=== PATIENT | male | born 1945 | race Caucasian/White ===

== ENCOUNTER 2017-03-19 09:58 | Outpatient (CLI) | payer MEDICARE, OTHER ==
[2016-07-13 09:16] VITALS: BP 134/73
[2017-03-19 11:04] LABS: eGFR (African) > 60; eGFR (Non-African) > 60
--- NOTE | 2017-03-19 13:56 | Diagnostic Imaging Report ---
NEY LUNA [facility] [address] [facility] [address] [address] Report Submission Date: Mar 19, 2017 12:07:53 PM CDT Patient Study Name: HUSAM NOEL Date: Mar 19, 2017 10:15:08 AM CDT Modality Type: CR Gender: M Description: LOWER EXTREMITY : 45 Institution: [facility] Physician: NEY LUNA Examination: Plain film knee History: Knee discomfort Findings: 3 views of the knee demonstrates normal cortical margins. No fracture. No dislocation. No joint effusion. No soft tissue irregularity. Impression: No osseous abnormality Electronically signed on Mar 19, 2017 12:07:53 PM CDT by: Lc PATEL
--- NOTE | 2017-03-19 13:56 | Diagnostic Imaging Report ---
NYE LUNA [facility] [address] [address] [facility] [address] [address] Report Submission Date: Mar 19, 2017 11:21:29 AM CDT Patient Study Name: HUSAM NOEL Date: Mar 19, 2017 10:09:10 AM CDT Modality Type: CR Gender: M Description: SPINE : 45 Institution: [facility] Physician: NEY LUNA Examination: Plain film lumbar spine History: Low back discomfort Comparison exam: None provided Findings: 3 views of the lumbar spine demonstrate normal height. No anterior compression. Anterior and posterior osteophyte formation. Disc space narrowing L5/S1. Atherosclerotic disease involving the aortoiliac vessel. Impression: Lumbar degenerative changes. No compression deformity. Electronically signed on Mar 19, 2017 11:21:29 AM CDT by: Lc PATEL
== END 2017-03-19 10:00 ==
LOC: RAD 09:58
PROVIDERS: ATTEND Family Medicine
DX: M25.562 Pain in left knee (principal); M79.605 Pain in left leg; M54.32 Sciatica, left side; N40.1 Benign prostatic hyperplasia with lower urinary tract symptoms; I10 Essential (primary) hypertension; E78.00 Pure hypercholesterolemia, unspecified
CPT/HCPCS: 72100; 73562; 80048; 80061; 84153

== ENCOUNTER 2017-03-28 07:41 | Outpatient (CLI) | payer MEDICARE, OTHER ==
[2016-07-13 09:16] VITALS: BP 134/73
--- NOTE | 2017-03-28 09:10 | Diagnostic Imaging Report ---
[facility] [address] [facility] [address] [place] [address]. [id number] Report Submission Date: Mar 28, 2017 8:49:58 AM CDT Patient Study Name: HUSAM NOEL Date: Mar 28, 2017 8:08:47 AM CDT Modality Type: MR Gender: M Description: MRI L SPINE W/O CONTRAST : 45 Institution: [facility] Physician: CHERYL NEY - OP MRI of the lumbar spine Clinical history: Low back pain with left lower extremity sciatica for 6 months . Routine sagittal T1 , T2 and STIR images were performed followed by axial T1 and T2 weighted images, the study demonstrate the following: L5/S1 disc level: 5 mm centrally bulging disc without significant spinal stenosis. L4 /L5 disc level: 3 mm generalized bulging disc slightly more pronounced at the left neural foramine L3/L4 disc level: 1 mm generalized bulging disc without spinal stenosis L2/L3 disc level: Normal L1/L2 disc level: Normal. 1 cm cavernous hemangioma of the body of L2 and L3 . No fractures or bone marrow edema. Impression: Very minimal disc disease process as described above. Electronically signed on Mar 28, 2017 8:49:58 AM CDT by: Tariq PATEL
== END 2017-03-28 08:00 ==
LOC: RAD 07:41
PROVIDERS: ATTEND Family Medicine
DX: M54.17 Radiculopathy, lumbosacral region (principal); M54.32 Sciatica, left side; M79.605 Pain in left leg
CPT/HCPCS: 72148

== ENCOUNTER 2018-03-25 09:39 | Outpatient (CLI) | payer MEDICARE, OTHER ==
[2016-07-13 09:16] VITALS: BP 134/73
[2018-03-25 09:51] LABS: BASOPHILS % 1.1 (0.0-1.5); EOSINOPHILS % 6.1 % (0.0-6.8); MEAN CORPUSCULAR HEMOGLOBIN 30.3 pg (28.0-34.0); MEAN CORPUSCULAR VOLUME 91.5 fl (80.0-100.0); MONOCYTES % 4.9 % (0.0-11.0)
[2018-03-25 10:18] LABS: eGFR (Non-African) > 60
== END 2018-03-25 12:22 ==
LOC: LAB 09:39
PROVIDERS: ATTEND Family Medicine
DX: I10 Essential (primary) hypertension (principal); E78.00 Pure hypercholesterolemia, unspecified
CPT/HCPCS: 36415; 80053; 80061; 85025

== ENCOUNTER 2019-09-18 10:14 | Outpatient (CLI) | payer MEDICARE, OTHER ==
[2016-07-13 09:16] VITALS: BP 134/73
[2019-09-18 10:45] LABS: BASOPHILS % 0.6 % (0.0-1.5); NEUTROPHILS # 4.6 # k/uL (1.4-7.7)
[2019-09-18 10:56] LABS: eGFR (Non-African) > 60
[2019-09-18 10:57] LABS: HDL 46 mg/dL (>40)
== END 2019-09-18 10:19 ==
LOC: LAB 10:14
PROVIDERS: ATTEND Family Medicine
DX: E78.00 Pure hypercholesterolemia, unspecified (principal); I10 Essential (primary) hypertension
CPT/HCPCS: 36415; 80053; 80061; 85025